=== PATIENT | female | born 1955 | race African-American/Black ===

== ENCOUNTER 2017-05-16 15:28 | Day surgery (SDC) | payer BC, OTHER ==
[2017-05-16] MEDS ORDERED: NALOXONE HCL INJ/PF 0.4 MG/1 ML SDV ONE (16:03)
[2017-05-16] MEDS ORDERED: GLUCAGON,HUMAN RECOMB 1 MG INJ ONE (16:04)
[2017-05-16] MEDS ORDERED: MIDAZOLAM 2 MG/2 ML INJ ONE (16:04)
[2017-05-16] MEDS ORDERED: EPINEPHRINE INJ 1 MG/10 ML DISP.SYRIN ONE (16:04)
[2017-05-16] MEDS ORDERED: FENTANYL CITRATE INJ/PF 100 MCG/2 ML AMPUL ONE (16:04)
[2017-05-16] MEDS ORDERED: FLUMAZENIL INJ 0.5 MG/5 ML VIAL ONE (16:04)
[2017-05-16] MEDS: MIDAZOLAM 2 MG/2 ML INJ ONE ×3 (16:45→16:55)
--- NOTE | 2017-05-16 17:12 | Operative Report ---
Operative Report DATE OF SURGERY: 05/16/17 Operative Report: Pre-op diagnosis: Colon cancer screening and family history of colon cancer Post-op diagnosis: Sigmoid colon polyp Surgery: Colonoscopy to ileocolonic anastomosis with polypectomy Medications: Versed mg, Fentanyl mcg IV push Tissue removed: Procedure: After informed consent obtained from patient, conscious sedation was achieved. A digital rectal examination was performed and this was unremarkable. The colonoscope was inserted into the rectum and advanced to the cecum. The mucosa was examined into details as the colonoscope was slowly pulled out of the patient. The endoscope was retroflexed in the rectum. Patient tolerated the procedure well. Findings Anastomosis: This was situated at about 75 cm in the distal ascending colon and was normal. The terminal ileum was entered and found to be normal Ascending colon: Normal Transverse colon: Normal Descending colon: Normal Sigmoid colon: A 5 mm polyp was removed with a cold snare Rectum: Normal except for internal hemorrhoids Plan: Await pathology. Repeat colonoscopy in 5-10 years depending on the pathology OPERATION: .
[2017-05-16 18:07] VITALS: BP 135/62
== END 2017-05-16 18:00 | disposition home or self-care (01) ==
LOC: END 15:28
PROVIDERS: ATTEND Internal Medicine Gastroenterology
PROC: 0DBN8ZX Excision of Sigmoid Colon, Via Natural or Artificial Opening Endoscopic, Diagnostic (ICD-10-PCS; principal; 2017-05-16 16:00)
DX: Z12.11 Encounter for screening for malignant neoplasm of colon (principal); D12.5 Benign neoplasm of sigmoid colon; K64.8 Other hemorrhoids; Z80.0 Family history of malignant neoplasm of digestive organs
CPT/HCPCS: 45385; 88305 ×2; J2250; J3010; J0171; J1610; J2310; J3490

== ENCOUNTER → 2019-01-17 | Outpatient (CLI) | payer BC, OTHER | LOC: OD 11:28 | PROVIDERS: ATTEND Nurse Practitioner Acute Care | DX: L02.214 Cutaneous abscess of groin (principal) | CPT/HCPCS: 87070; 87075; 87077; 87186; 87205 ==

== ENCOUNTER → 2020-05-07 | Outpatient (CLI) | payer BC, OTHER ==
[~2020-05-07] MED LIST: COVID-19 VACCINE (PFIZER)/PF 30 MCG/0.3 ML VIAL IM ONE; EPINEPHRINE INJ/PF 1 MG/1 ML AMPULE IM PRN
== END ==
LOC: EMPHEALTH 09:31
PROVIDERS: ATTEND Internal Medicine
DX: Z23 Encounter for immunization (principal)
CPT/HCPCS: 91300

== ENCOUNTER 2020-05-15 12:55 | Day surgery (SDC) | payer BC, OTHER ==
[~2020-05-15 12:55] MED LIST changes: -COVID-19 VACCINE (PFIZER)/PF 30 MCG/0.3 ML VIAL IM ONE; -EPINEPHRINE INJ/PF 1 MG/1 ML AMPULE IM PRN; +LACTATED RINGERS 1000 ML IV PRN; +LIDOCAINE 0.5% INJ-PF (5 MG/ML) 50 ML SDV SUBCUT PRN
[2020-05-15] MEDS ORDERED: LIDOCAINE 2% INJ-PF (20 MG/ML) 10 ML AMPUL ONE (14:01)
[2020-05-15] MEDS ORDERED: PROPOFOL INJ 200 MG/20 ML VIAL IV ONE (14:01)
--- NOTE | 2020-05-15 15:03 | Operative Report ---
Operative Report DATE OF SURGERY: 05/15/20 Operative Report: Pre-op diagnosis: History of colon polyps Post-op diagnosis: 1. Polyps in the transverse and sigmoid colon 2. Internal hemorrhoids Surgery: Colonoscopy with polypectomy Medications: As per anesthesia Tissue removed: Colon polyps Procedure: After informed consent obtained from patient, conscious sedation was achieved. A digital rectal examination was performed and this was unremarkable. The colonoscope was inserted into the rectum and advanced to the cecum. The appendiceal orifice and the terminal ileum were both identified. The mucosa was examined into details as the colonoscope was slowly pulled out of the patient. The endoscope was retroflexed in the rectum. Patient tolerated the procedure well. Findings Cecum: Normal Ascending colon: Normal Transverse colon: 5 mm polyp removed with a cold snare Descending colon: Normal Sigmoid colon: 4 mm polyp removed with a cold snare Rectum: Normal except for internal hemorrhoids Plan: Await pathology. Repeat colonoscopy in 5 years OPERATION: .
[2020-05-15 15:33] VITALS: BP 130/69
== END 2020-05-15 15:35 | disposition home or self-care (01) ==
LOC: OROUT 12:55
PROVIDERS: ATTEND Internal Medicine Gastroenterology
DX: Z12.11 Encounter for screening for malignant neoplasm of colon (principal); D12.5 Benign neoplasm of sigmoid colon; D12.3 Benign neoplasm of transverse colon; K64.8 Other hemorrhoids; Z01.812 Encounter for preprocedural laboratory examination; Z20.822 Contact with and (suspected) exposure to COVID-19; Z86.010 Personal history of colon polyps; Z80.0 Family history of malignant neoplasm of digestive organs; Z90.49 Acquired absence of other specified parts of digestive tract; Z87.19 Personal history of other diseases of the digestive system; E66.9 Obesity, unspecified; Z68.35 Body mass index [BMI] 35.0-35.9, adult; E11.9 Type 2 diabetes mellitus without complications; Z79.84 Long term (current) use of oral hypoglycemic drugs
CPT/HCPCS: 45385; 82962; 88305 ×2; 00812; U0003; J2704; J3490; C9803; 812; 87635

== ENCOUNTER → 2020-05-28 | Outpatient (CLI) | payer BC, OTHER ==
[~2020-05-28] MED LIST changes: +COVID-19 VACCINE (PFIZER)/PF 30 MCG/0.3 ML VIAL IM ONE; +EPINEPHRINE INJ/PF 1 MG/1 ML AMPULE IM PRN; -LACTATED RINGERS 1000 ML IV PRN; -LIDOCAINE 0.5% INJ-PF (5 MG/ML) 50 ML SDV SUBCUT PRN
--- OUTSIDE RECORDS SUMMARY | 2020-05-28 14:31 | XMS REPORT ---
:1955 [facility] [address] [place] [id number] Care Team Providers Name Role Phone Fortunato Attending Clinician Unavailable Fortunato Attending Clinician Unavailable Allergies, Adverse Reactions, Alerts This patient has no known allergies or adverse reactions. Medications This patient has no known medications. Problems This patient has no known problems. Procedures Procedure Date / Time Performed Performing Clinician Devic e OFFICE/OUTPATIENT VISIT EST 2020-03-03 14:00:00 OFFICE/OUTPATIENT VISIT EST 2020-02-03 08:00:00 OFFICE/OUTPATIENT VISIT [facility] 2020-01-27 13:15:00 OFFICE/OUTPATIENT VISIT [facility] 2017-04-03 14:30:00 Results Test Description Test Time Test Comments Text Results Atomic Results Result Comments SARS-CoV-2 RNA Resp Ql DULCE+probe 2020-05-13 00:00:00 Test Item Value Reference Range Comments SARS-CoV-2 RNA Resp Ql DULCE+probe Not detected [facility] Case ID: (test code = 87970-9) [id number] BASIC METABOLIC [id number] 00:00:00 Test Item Value Reference Range Comments SODIUM (test code = 63186873) 137 mmol/L 135-146 CHLORIDE (test code = 71287552) 102 mmol/L 98-110 CREATININE (test code = 20668394) 1.18 mg/dL 0.50-0.99 BUN/CREATININE RATIO (test code = 81912897) 17 (calc) 6-22 CARBON DIOXIDE (test code = 42694490) 24 mmol/L 20-32 eGFR NON-AFR. SAMMARINESE (test code = 49 mL/min/1.73m2 > OR = 60 07759093) eGFR (test code = 57 mL/min/1.73m2 > OR = 60 58102862) GLUCOSE (test code = 90409938) 304 mg/dL 65-99 CALCIUM (test code = 74129408) 9.3 mg/dL 8.6-10.4 POTASSIUM (test code = 08639349) 4.0 mmol/L 3.5-5.3 UREA NITROGEN (BUN) (test code = 28550074) 20 mg/dL 7-25 SM AND SM/[employer] [id number] 00:00:00 Test Item Value Reference Range Comments SM ANTIBODY (test code = 75593538) <1.0 NEG AI <1.0 NEG SM/[employer] ANTIBODY (test code = 88466542) <1.0 NEG AI <1.0 NEG C-REACTIVE [id number] 10:58:[id number] 10:58:001.00CBC (INCLUDES DIFF/PLT)2020-01-29 10:58:00 Test Item Value Reference Range Comments RDW (test code = 01457310) 12.5 % 11.0-15.0 ABSOLUTE MONOCYTES (test code = 00836192) 424 cells/uL 200-95 0 MCHC (test code = 03963700) 33.4 g/dL 32.0-36.0 RED BLOOD CELL COUNT (test code = 16992063) 4.78 Million/uL 3.80 -5.10 HEMATOCRIT (test code = 26100231) 41.3 % 35.0-45.0 MCH (test code = 09365752) 28.9 pg 27.0-33.0 ABSOLUTE LYMPHOCYTES (test code = 97288031) 2424 cells/uL 850- 3900 WHITE BLOOD CELL COUNT (test code = 8.0 Thousand/uL 3.8-10.8 14838955) BASOPHILS (test code = 02358699) 0.5 % EOSINOPHILS (test code = 62910893) 2.5 % MPV (test code = 59322689) 11.3 fL 7.5-12.5 ABSOLUTE BASOPHILS (test code = 39422513) 40 cells/uL 0-200 ABSOLUTE EOSINOPHILS (test code = 71659788) 200 cells/uL 15-5 00 LYMPHOCYTES (test code = 96888873) 30.3 % ABSOLUTE NEUTROPHILS (test code = 63619185) 4912 cells/uL 1500 -7800 PLATELET COUNT (test code = 12238533) 280 Thousand/uL 140-400 NEUTROPHILS (test code = 79750755) 61.4 % MCV (test code = 54994598) 86.4 fL 80.0-100.0 MONOCYTES (test code = 35304225) 5.3 % HEMOGLOBIN (test code = 23296817) 13.8 g/dL 11.7-15.5 HEMOGLOBIN A1c WITH [id number] 10:58:00 Test Item Value Reference Range Comments eAG (mmol/L) (test code = 83013601) 17.9 (calc) HEMOGLOBIN A1c (test code = 4548-4) 12.9 % of total Hgb <5.7 eAG (mg/dL) (test code = 38190469) 324 (calc) SED RATE BY MODIFIED [id number] 10:58:0025COMPREHENSIVE METABOLIC [id number] 10:58:00 Test Item Value Reference Range Comments CREATININE (test code = 94778519) 1.20 mg/dL 0.50-0.99 POTASSIUM (test code = 48326599) 4.1 mmol/L 3.5-5.3 CARBON DIOXIDE (test code = 00609230) 26 mmol/L 20-32 CALCIUM (test code = 83902210) 9.7 mg/dL 8.6-10.4 ALBUMIN/GLOBULIN RATIO (test code = 1.0 (calc) 1.0-2.5 18263434) GLOBULIN (test code = 33672675) 3.8 g/dL (calc) 1.9-3.7 ALT (test code = 45867096) 12 U/L 6-29 ALKALINE PHOSPHATASE (test code = 67652126) 94 U/L 37-1 53 SODIUM (test code = 91963066) 137 mmol/L 135-146 BILIRUBIN, TOTAL (test code = 88993861) 1.0 mg/dL 0.2-1.2 eGFR NON-AFR. SAMMARINESE (test code = 48 mL/min/1.73m2 > OR = 60 68321074) GLUCOSE (test code = 68263214) 305 mg/dL 65-99 PROTEIN, TOTAL (test code = 85276426) 7.7 g/dL 6.1-8.1 BUN/CREATININE RATIO (test code = 40027973) 12 (calc) 6-22 UREA NITROGEN (BUN) (test code = 14187777) 14 mg/dL 7-25 eGFR (test code = 56 mL/min/1.73m2 > OR = 60 53362417) ALBUMIN (test code = 61217266) 3.9 g/dL 3.6-5.1 CHLORIDE (test code = 71400348) 101 mmol/L 98-110 AST (test code = 67013570) 15 U/L 10-35 VITAMIN D,25-OH,TOTAL,[id number] 10:58:0014LIPID PANEL, [id number] 10:58:00 Test Item Value Reference Range Comments TRIGLYCERIDES (test code = 94263153) 103 mg/dL <150 CHOL/HDLC RATIO (test code = 08848853) 3.1 (calc) <5.0 CHOLESTEROL, TOTAL (test code = 51826718) 211 mg/dL <200 NON HDL CHOLESTEROL (test code = 26716474) 142 mg/dL (calc) <130 LDL-CHOLESTEROL (test code = 58099543) 121 mg/dL (calc) HDL CHOLESTEROL (test code = 72513490) 69 mg/dL > OR = 50 SARS-CoV-2 RNA Resp Ql DULCE+[id number] 00:00:00 Test Item Value Reference Range Comments SARS-CoV-2 RNA Resp Ql Not detected [facility] Case DULCE+probe (test code = ID: 00747 1124 67504-9) WOUND CULTURE + GRAM STAIN\[id number] 11:15:00 Test Item Value Reference Range Comments GROUP B BETA STREPTOCOCCUS (test code = BTSB) PROTEUS MIRABILIS (test code = PROT) WOUND CULTURE + GRAM STAIN (test code = WNDC) See Comment KLEBSIELLA PNEUMONIAE (test code = KLPN) NEGATIVE COMBO PANEL 51\S\[id number] 11:15:00 Test Item Value Reference Range Comments NEGATIVE COMBO PANEL 51 (test code = NUC51) See Comment NEGATIVE COMBO PANEL 51 (test code = UPC784) See Comment Pap, TP Imaging w/ [id number] 09:49:00 Test Item Value Reference Range Comments Previous Diagnosis: (test code = Z12.4 835024) Clinical Information: (test code = POSTMENOPAUSAL 437857) LMP: (test code = 282055) 20000508 Source: (test code = 740752) Cervical/endocervical Source (test code = 283838) Cervical/endocervical Number of Slides/Vials: (test code = 1 Vial Submitted 830597) HPV, High Risk (test code = 044053) Not Detected Cyclic Citrul Peptide (CCP) Ab [id number] 09:44:00 Test Item Value Reference Range Comments CCP Ab IgG (test code = 556574) <16 Units Rheumatoid [id number] 09:44:00 Test Item Value Reference Range Comments Rheumatoid Factor (test code = 964448) <14 IU/mL <14 MINDA screen, IFA w/rfx Titer/[id number] 09:44:00 Test Item Value Reference Range Comments Anti Nuclear Antibody (test code = 120098) NEG NEGAT ELLA T4 Free (FT4)2017-04-03 15:38:00 Test Item Value Reference Range Comments Free T4 (test code = 892665) 0.8 ng/dL 0.8-1.8 Lipid [id number] 15:38:00 Test Item Value Reference Range Comments LDL Cholesterol (Calc) (test code = 214374) 137 mg/dL <100 Triglycerides (test code = 743468) 87 mg/dL <150 HDL Cholesterol (test code = 013288) 56 mg/dL >50 VLDL Cholesterol (Calc) (test code = 035532) 17 mg/dL <30 Total Chol/HDL Ratio (test code = 764407) 3.8 Ratio <5.0 Cholesterol (test code = 301504) 210 mg/dL <200 [id number] 15:38:00 Test Item Value Reference Range Comments TSH (test code = 128024) 1.34 mIU/L CBC with [id number] 15:38:00 Test Item Value Reference Range Comments Lymph % (test code = 316196) 39 % Baso % (test code = 877626) 1 % MCHC (test code = 283617) 33.0 g/dL 32.0-36.0 Absolute Neut (test code = 4018 cells/uL 5563-0455 892041) WBC (test code = 239530) 8.2 K/uL 3.8-10.8 MPV (test code = 511602) 10.9 fL 7.5-12.5 Platelet Count (test code = 305 K/uL 140-400 293868) [place] % (test code = 102988) 7 % MCV (test code = 548909) 84.7 fL 80.0-100.0 RDW (test code = 468948) 14.2 % 11.0-15.0 Absolute Lymph (test code = 3198 cells/uL 850-3900 703556) Eos % (test code = 927176) 4 % Hemoglobin (test code = 895158) 14.1 g/dL 11.7-15.5 Smear Review (test code = Criteria for review not met 480117) Neutrophils % (test code = 49 % 511100) RBC (test code = 615217) 5.04 MIL/uL 3.80-5.10 MCH (test code = 727168) 28.0 pg 27.0-33.0 Absolute [place] (test code = 574 cells/uL 200-950 333053) Absolute Baso (test code = 82 cells/uL 0-200 175356) Absolute Eos (test code = 328 cells/uL 15-500 396421) Hematocrit (test code = 052922) 42.7 % 35.0-45.0 CMP with Estimated [id number] 15:38:00 Test Item Value Reference Range Comments Total Protein (test code = 112194) 8.3 g/dL 6.1-8.1 Est GFR, (test code = 664914) 62 mL/min > =60 Potassium (test code = 896748) 4.1 mmol/L 3.5-5.3 Est GFR, NonAfrican [place] (test code = 364407) 54 mL/min >=60 Glucose (test code = 758510) 138 mg/dL 65-99 Calcium (test code = 382793) 9.8 mg/dL 8.6-10.4 Chloride (test code = 580673) 103 mmol/L 98-110 Albumin (test code = 379842) 4.1 g/dL 3.6-5.1 ALT/SGPT (test code = 592374) 17 U/L 6-29 BUN (test code = 361774) 14 mg/dL 7-25 Creatinine (test code = 778074) 1.11 mg/dL 0.50-0.99 AST/SGOT (test code = 370679) 17 U/L 10-35 CO2 (test code = 416820) 26 mmol/L 20-31 Bilirubin, Total (test code = 102390) 0.8 mg/dL 0.2-1.2 Alkaline Phosphatase (test code = 441736) 88 U/L 33-130 Sodium (test code = 220088) 139 mmol/L 135-146 Assessments Condition Name Status Diagnosis Date Treating Clinici an Type 2 diabetes mellitus with hyperglycemia Active Obesity, unspecified Active Unsp adverse effect of drug or medicament, Active init encntr Body mass index (BMI) 33.0-33.9, adult Active Type 2 diabetes mellitus with hyperglycemia Active Other specified abnormal immunological Active findings in serum Vitamin D deficiency, unspecified Active Obesity, unspecified Active Candidiasis of vulva and vagina Active Hyperglycemia, unspecified Active Pain in unspecified joint Active Hidradenitis suppurativa Active Chronic fatigue, unspecified Active Crohn's disease, unspecified, without Active complications Family history of malignant neoplasm of Active digestive organs Encounter for screening for oth suspected Active endocrine disorder Encounters Start End Encounter Admission Attending Care Care Encounter Date/Time Date/Time Type Type Clinicians Facility Department ID 2020-03-03 2020-03-03 Outpatient [facility] E [id number] 14:00:00 14:00:00 Bud Robertson???s [id number] and [id number] [facility] [id number] Clini 2020-02-03 2020-02-03 Outpatient [facility] A [id number] 08:00:00 08:00:00 Bud Robertson [id number] s [id number] and [id number] [facility], 2020-01-27 2020-01-27 Outpatient [facility] C [id number] 13:15:00 13:15:00 Bud Robertson [id number] s [id number] and [id number] [facility], 2017-04-03 2017-04-03 Outpatient [facility] 8 [id number] 14:30:00 14:30:00 Bud Robertson [id number] s [id number] and [id number] [facility] Social History This patient has no known social history. Vital Signs This patient has no known vital signs.
== END ==
LOC: EMPHEALTH 09:20
PROVIDERS: ATTEND Internal Medicine
DX: Z23 Encounter for immunization (principal)
CPT/HCPCS: 91300